=== PATIENT | male | born 1960 | race Caucasian/White ===

== ENCOUNTER 2020-02-05 14:13 | Observation (INO) ==
[2020-02-05] MEDS ORDERED: Naloxone 0.4 MG/ML INJ IVP PRN (18:18)
[2020-02-05] MEDS ORDERED: Ondansetron 4 MG/2 ML VIAL IVP PRN (18:18)
[2020-02-05] MEDS ORDERED: D5% in Water 1,000 ML IVC PRN (18:20)
[2020-02-05] MEDS ORDERED: Dextrose Gel 15 GM/37.5 ML TUBE PO PRN ×2 (18:20)
[2020-02-05] MEDS ORDERED: *HR* Dextrose 50 % in Water (Syg) 50 ML SYRINGE IVP PRN (18:20)
[2020-02-05] MEDS ORDERED: Acetaminophen 325 MG TABLET PO PRN (18:21)
[2020-02-05] MEDS ORDERED: *HR* OxyCODONE/APAP 5/325 TABLET PO PRN (18:21)
[2020-02-05] MEDS: levoFLOXacin 750 MG/150 ML 750 MG/150 ML BAG IVPB SCH (19:57)
[2020-02-05] MEDS: 0.9 % Sodium Chloride 1,000 ML IVC SCH (19:58)
[2020-02-05] MEDS: Insulin LISPRO 300 UNITS/3 ML VIAL SQ SCH (20:05)
[2020-02-05] MEDS: Topiramate 100 MG TABLET PO SCH (23:22)
[2020-02-06] MEDS: 0.9 % Sodium Chloride 1,000 ML IVC SCH (05:16)
[2020-02-06 07:41] LABS: Basophils % 0.4 %; Eosinophils # 0.2 K/mcL (0.0-0.6); Eosinophils % 1.9 %; Hematocrit 40.1 % (37.5-50.1); Immature Granulocytes % 0.4 % (0-4); Lymphocytes # 2.1 K/mcL (0.6-4.6); Lymphocytes % 23.5 %; Mean Corpuscular HGB Conc 32.4 g/dL (31.6-35.5); Mean Corpuscular Hemoglobin 29.6 pg (28.0-33.3); Mean Corpuscular Volume 91.3 fL (83.0-100.0); Mean Platelet Volume 9.6 fL (9.4-12.4); Monocytes # 1.1 K/mcL (0.0-1.3); Monocytes % 12.4 %; Neutrophils # 5.6 K/mcL (1.6-8.9); Platelet Count 198 K/mcL (140-400); Red Blood Count 4.39 M/mcL (4.19-5.50); Red Cell Distribution Width 14.6 % (11.5-14.5); Segmented Neutrophils % 61.4 %
[2020-02-06] MEDS: Loratadine 10 MG TABLET PO SCH (07:57)
[2020-02-06] MEDS: Topiramate 100 MG TABLET PO SCH ×2 (07:58→19:18)
[2020-02-06] MEDS: atenoloL 50 MG TABLET PO SCH (07:58)
[2020-02-06] MEDS: Insulin LISPRO 300 UNITS/3 ML VIAL SQ SCH ×3 (07:59→16:57)
[2020-02-06] MEDS: Fluticasone Propionate Nasal 50 MCG/SPRAY BOTTLE NS SCH (07:59)
[2020-02-06 08:03] LABS: BUN/Creatinine Ratio 13 (6-26); Blood Urea Nitrogen 14 mg/dL (6-20); Calcium 8.1 mg/dL (8.6-10.3); Carbon Dioxide 18 mEq/L (23-29); Chloride 110 mEq/L (98-107); Glucose 140 mg/dL (70-105); Osmolality,Calculated 281 (280-300); Phosphorous 3.2 mg/dL (2.7-4.5); Potassium 3.4 mEq/L (3.5-5.1); Sodium 134 mEq/L (136-145); eGFR For African Americans > 60 (> 60); eGFR For Non-African Americans > 60 (> 60)
[2020-02-06] MEDS ORDERED: *HR* Dextrose 50 % in Water (Syg) 50 ML SYRINGE IVP PRN (15:52)
[2020-02-06] MEDS ORDERED: Dextrose Gel 15 GM/37.5 ML TUBE PO PRN ×2 (15:52)
[2020-02-06] MEDS ORDERED: D5% in Water 1,000 ML IVC PRN (15:52)
[2020-02-06] MEDS: levoFLOXacin 750 MG/150 ML 750 MG/150 ML BAG IVPB SCH (17:06)
[2020-02-06] MEDS ORDERED: Insulin LISPRO 300 UNITS/3 ML VIAL SQ SCH (21:00)
[2020-02-07 02:38] LABS: Basophils % 0.4 %; Eosinophils # 0.3 K/mcL (0.0-0.6); Eosinophils % 3.3 %; Hematocrit 37.3 % (37.5-50.1); Hemoglobin 12.3 g/dL (12.9-16.9); Immature Granulocytes % 0.4 % (0-4); Lymphocytes # 2.3 K/mcL (0.6-4.6); Lymphocytes % 27.8 %; Mean Corpuscular Hemoglobin 30.6 pg (28.0-33.3); Mean Corpuscular Volume 92.8 fL (83.0-100.0); Mean Platelet Volume 9.8 fL (9.4-12.4); Monocytes # 0.9 K/mcL (0.0-1.3); Monocytes % 10.4 %; Neutrophils # 4.7 K/mcL (1.6-8.9); Platelet Count 176 K/mcL (140-400); Red Blood Count 4.02 M/mcL (4.19-5.50); Red Cell Distribution Width 14.6 % (11.5-14.5); Segmented Neutrophils % 57.7 %; White Blood Count 8.2 K/mcL (4.3-11.1)
[2020-02-07 02:55] LABS: BUN/Creatinine Ratio 14 (6-26); Blood Urea Nitrogen 16 mg/dL (6-20); Calcium 7.7 mg/dL (8.6-10.3); Carbon Dioxide 18 mEq/L (23-29); Chloride 108 mEq/L (98-107); Glucose 128 mg/dL (70-105); Magnesium 1.9 mg/dL (1.6-2.6); Osmolality,Calculated 277 (280-300); Potassium 3.4 mEq/L (3.5-5.1); Sodium 132 mEq/L (136-145); eGFR For African Americans > 60 (> 60); eGFR For Non-African Americans > 60 (> 60)
[2020-02-07] MEDS: Insulin LISPRO 300 UNITS/3 ML VIAL SQ SCH ×2 (07:36→12:41)
[2020-02-07] MEDS: Loratadine 10 MG TABLET PO SCH (08:19)
[2020-02-07] MEDS: atenoloL 50 MG TABLET PO SCH (08:19)
[2020-02-07] MEDS: Fluticasone Propionate Nasal 50 MCG/SPRAY BOTTLE NS SCH (08:19)
[2020-02-07] MEDS: Topiramate 100 MG TABLET PO SCH (08:19)
[2020-02-07 11:31] VITALS: BP 100/64
== END 2020-02-07 16:39 | disposition home or self-care (01) ==
LOC: 3BNU → EDSTATUS 17:46 → SUATTDRO 17:47
PROVIDERS: ADMIT Internal Medicine; ATTEND Family Medicine

== ENCOUNTER 2021-08-12 22:11 | Inpatient (IN) ==
[2021-08-12 22:49] LABS: Basophils % 0.2 %; Eosinophils % 0.2 %; Hematocrit 31.4 % (37.5-50.1); Hemoglobin 10.3 g/dL (12.9-16.9); Immature Granulocytes % 0.6 % (0-4); Lymphocytes # 0.7 K/mcL (0.6-4.6); Lymphocytes % 5.4 %; Mean Corpuscular HGB Conc 32.8 g/dL (31.6-35.5); Mean Corpuscular Hemoglobin 28.9 pg (28.0-33.3); Mean Corpuscular Volume 88.2 fL (83.0-100.0); Monocytes % 7.9 %; Neutrophils # 10.8 K/mcL (1.6-8.9); Platelet Count 158 K/mcL (140-400); Red Blood Count 3.56 M/mcL (4.19-5.50); Red Cell Distribution Width 16.1 % (11.5-14.5); Segmented Neutrophils % 85.7 %; White Blood Count 12.6 K/mcL (4.3-11.1)
[2021-08-12] MEDS: DilTIAZem 50 MG/50 ML IV.SOLN IVC SCH (22:54)
[2021-08-12] MEDS ORDERED: 0.9 % Sodium Chloride 500 ML IVC ONE (23:07)
[2021-08-12] MEDS ORDERED: *HR* Heparin 5,000 UNIT/ML VIAL IVP ONE (23:08)
[2021-08-12] MEDS ORDERED: Heparin 25,000UNIT/250ML 1/2NS 25,000 UNIT/250 ML IV.SOLN IVC SCH (23:15)
[2021-08-12 23:41] LABS: Hematocrit 36.7 % (37.5-50.1); Mean Corpuscular HGB Conc 33.2 g/dL (31.6-35.5); Mean Corpuscular Hemoglobin 28.9 pg (28.0-33.3); Mean Platelet Volume 9.8 fL (9.4-12.4); Platelet Count 180 K/mcL (140-400); Red Blood Count 4.22 M/mcL (4.19-5.50); White Blood Count 14.2 K/mcL (4.3-11.1)
[2021-08-12 23:43] LABS: Hemoglobin 12.2 g/dL (12.9-16.9)
[2021-08-12 23:51] LABS: Heparin anti-factor XA UFH < 0.04 IU/mL (0.30-0.70)
[2021-08-12 23:52] LABS: INR 1.3; Prothrombin Time 14.1 Seconds (9.4-12.1)
[2021-08-13 00:08] LABS: Blood Urea Nitrogen > 130 mg/dL (6-20); Calcium 7.3 mg/dL (8.6-10.3); Carbon Dioxide 9 mEq/L (23-29); Chloride 101 mEq/L (98-107); Glucose 163 mg/dL (70-105); Potassium 2.9 mEq/L (3.5-5.1); Sodium 127 mEq/L (136-145); Troponin I 0.31 ng/mL (< 0.04); eGFR For African Americans 13 (> 60); eGFR For Non-African Americans 10 (> 60)
[2021-08-13 01:03] LABS: Bacteria,Urine Many per hpf (None-Few); Bilirubin,Urine Negative (Negative); Blood,Urine Large (Negative); Clarity,Urine Ex.Turbid (Clear); Color,Urine Yellow (Yellow); Glucose,Urine (UA) Normal (Normal); Ketones,Urine Negative (Negative); Leukocyte Esterase,Urine Large (Negative); Mucus,Urine Few per lpf (None-Few); Nitrite,Urine Negative (Negative); PH,Urine 6.5 pH Units (5.0-8.0); Protein,Urine 100 mg/dL (Neg-Trace); RBC,Urine TNTC per hpf (0-3); Specific Gravity,Urine 1.012 (1.010-1.025); Squamous Epithelial Cell,Urine Few per hpf (None-Few); WBC,Urine TNTC per hpf (0-3)
[2021-08-13] MEDS ORDERED: 0.9 % Sodium Chloride 1,000 ML IVC ONE ×2 (01:52→03:36)
[2021-08-13] MEDS ORDERED: Ondansetron ODT 4 MG TAB.RAPDIS SL PRN (03:09)
[2021-08-13] MEDS ORDERED: Acetaminophen 325 MG TABLET PO PRN (03:09)
[2021-08-13] MEDS ORDERED: Naloxone 0.4 MG/ML INJ IVP PRN (03:09)
[2021-08-13] MEDS: DilTIAZem 50 MG/50 ML IV.SOLN IVC SCH ×2 (03:21→20:55)
[2021-08-13] MEDS ORDERED: Perflutren Lipid Microsphere 1.3 ML in 0.9 % Sodium Chloride 8.7 ML IVP PRN (03:32)
[2021-08-13] MEDS ORDERED: Dextrose Gel 15 GM/37.5 ML TUBE PO PRN ×2 (04:17)
[2021-08-13] MEDS ORDERED: *HR* Dextrose 50 % in Water (Syg) 50 ML SYRINGE IVP PRN (04:17)
[2021-08-13] MEDS ORDERED: D5% in Water 1,000 ML IVC PRN (04:17)
[2021-08-13] MEDS ORDERED: Vancomycin 1 EACH in 0.9 % Sodium Chloride 250 ML IVPB PRN (05:00)
[2021-08-13] MEDS ORDERED: Vancomycin 1,250 MG/262.5 ML IV.SOLN IVPB ONE (05:00)
[2021-08-13] MEDS ORDERED: Amiodarone Premix 150 MG/100 ML BAG IVPB ONE (05:12)
[2021-08-13] MEDS: Calcium Gluconate 1gm/50mL 1 GM/50 ML BAG IVPB SCH ×2 (05:20→05:49)
[2021-08-13] MEDS: Piperacillin/Tazobactam 3.375 GM in 0.9 % Sodium Chloride Mini Bag 100 ML IVPB SCH ×2 (05:25→19:40)
[2021-08-13] MEDS ORDERED: Amiodarone Premix 360 MG/200 ML BAG IVC ONE (05:30)
[2021-08-13 05:38] LABS: Sodium, Urine 47.4 mEq/L
[2021-08-13] MEDS: Insulin LISPRO 300 UNITS/3 ML VIAL SUBQ SCH ×3 (06:04→19:11)
[2021-08-13] MEDS ORDERED: 0.9 % Sodium Chloride 1,000 ML IVC SCH (06:45)
[2021-08-13 06:56] LABS: INR 1.2; Prothrombin Time 13.5 Seconds (9.4-12.1)
[2021-08-13 06:59] LABS: Activated Partial Thrombo Time 43.1 Seconds (26.0-36.0)
[2021-08-13 07:19] LABS: Albumin 2.6 g/dL (3.5-5.7); Albumin/Globulin Ratio 0.6 (1.1-2.2); Bilirubin,Total 0.4 mg/dL (0.3-1.0); Calcium 7.6 mg/dL (8.6-10.3); Chol/HDL Ratio 13.7 (0-4.9); Globulin 4.3 g/dL (2.4-3.5); Total Protein 6.9 g/dL (6.4-8.9)
[2021-08-13 07:32] LABS: Thyroid Stimulating Hormone 3.977 mcIU/mL (0.340-5.600)
[2021-08-13 07:51] LABS: ABG Base Excess -14 mEq/L (-2 to 3); ABG HCO3 9 mEq/L (21-27); ABG Oxygen Saturation 98 % (95-98); ABG PCO2 14 mmHg (35-45); ABG PH 7.38 pH Units (7.32-7.45); ABG PO2 103 mmHg (85-104); ABG TCO2 9 mEq/L (20-26)
[2021-08-13 08:08] LABS: Basophils % 0.2 %; Eosinophils # 0.1 K/mcL (0.0-0.6); Eosinophils % 0.3 %; Hematocrit 35.5 % (37.5-50.1); Hemoglobin 11.6 g/dL (12.9-16.9); Immature Granulocytes % 0.8 % (0-4); Lymphocytes # 0.6 K/mcL (0.6-4.6); Lymphocytes % 3.7 %; Mean Corpuscular HGB Conc 32.7 g/dL (31.6-35.5); Mean Corpuscular Hemoglobin 28.9 pg (28.0-33.3); Mean Corpuscular Volume 88.5 fL (83.0-100.0); Mean Platelet Volume 9.7 fL (9.4-12.4); Monocytes % 6.5 %; Neutrophils # 14.1 K/mcL (1.6-8.9); Platelet Count 195 K/mcL (140-400); Red Blood Count 4.01 M/mcL (4.19-5.50); Red Cell Distribution Width 16.2 % (11.5-14.5); Segmented Neutrophils % 88.5 %
[2021-08-13] MEDS ORDERED: Sodium Bicarbonate 150 MEQ in D5% in Water 1,000 ML IVC SCH (08:30)
[2021-08-13] MEDS ORDERED: Ringers Solution, Lactated 1,000 ML IVC SCH (08:30)
[2021-08-13 09:03] LABS: Albumin 2.5 g/dL (3.5-5.7); Albumin/Globulin Ratio 0.6 (1.1-2.2); Bilirubin,Direct 0.1 mg/dL (0.0-0.2); Bilirubin,Indirect 0.3 mg/dL (0.0-1.0); Bilirubin,Total 0.4 mg/dL (0.3-1.0); Calcium 7.5 mg/dL (8.6-10.3); Globulin 4.2 g/dL (2.4-3.5); Total Protein 6.7 g/dL (6.4-8.9)
[2021-08-13 09:14] LABS: Estimated Average Glucose 137 mg/dl; Hemoglobin A1C 6.4 %
[2021-08-13] MEDS: Amiodarone Premix 360 MG/200 ML BAG IVC SCH ×2 (11:32→22:35)
[2021-08-13] MEDS: *HR* Heparin 5,000 UNIT/ML VIAL IVP PRN (13:32)
[2021-08-13] MEDS: Sodium Bicarbonate 150 MEQ in D5% in Water 1,000 ML IVC SCH (19:38)
[2021-08-13] MEDS: Heparin 25,000 UNIT/250 ML 25,000 UNIT/250 ML IV.SOLN IVC SCH (20:00)
[2021-08-13] MEDS ORDERED: *HR* Amiodarone 200 MG TABLET PO ONE (20:30)
[2021-08-13] MEDS ORDERED: Topiramate 100 MG TABLET PO SCH (21:30)
[2021-08-13] MEDS: Topiramate 25 MG TABLET PO SCH (21:42)
[2021-08-13 21:53] LABS: Calcium 7.4 mg/dL (8.6-10.3); Magnesium 2.2 mg/dL (1.6-2.6); Potassium 2.8 mEq/L (3.5-5.1)
[2021-08-14] MEDS: Amiodarone Premix 360 MG/200 ML BAG IVC SCH ×3 (03:58→20:05)
[2021-08-14] MEDS: Sodium Bicarbonate 150 MEQ in D5% in Water 1,000 ML IVC SCH ×5 (04:00→20:04)
[2021-08-14] MEDS: DilTIAZem 50 MG/50 ML IV.SOLN IVC SCH (04:01)
[2021-08-14 04:41] LABS: Calcium 6.9 mg/dL (8.6-10.3); Potassium 3.3 mEq/L (3.5-5.1)
[2021-08-14] MEDS: Piperacillin/Tazobactam 3.375 GM in 0.9 % Sodium Chloride Mini Bag 100 ML IVPB SCH ×2 (05:23→17:27)
[2021-08-14] MEDS: Insulin LISPRO 300 UNITS/3 ML VIAL SUBQ SCH ×4 (05:23→17:35)
[2021-08-14 05:57] LABS: Hemoglobin 10.1 g/dL (12.9-16.9); Mean Corpuscular HGB Conc 34.8 g/dL (31.6-35.5); Mean Corpuscular Volume 83.3 fL (83.0-100.0); Mean Platelet Volume 9.7 fL (9.4-12.4); Platelet Count 230 K/mcL (140-400); Red Blood Count 3.48 M/mcL (4.19-5.50); White Blood Count 12.6 K/mcL (4.3-11.1)
[2021-08-14] MEDS ORDERED: Vancomycin 1,250 MG/262.5 ML IV.SOLN IVPB ONE (06:00)
[2021-08-14] MEDS: *HR* Heparin 5,000 UNIT/ML VIAL IVP PRN ×2 (07:03→17:30)
[2021-08-14 07:21] LABS: Adenovirus F 40/41 PCR Not detected (Not detect); Astrovirus PCR Not detected (Not detect); C.difficile Toxin A/B Gene PCR Not detected (Not detect); Campylobacter by PCR Not detected (Not detect); Cryptosporidium by PCR Not detected (Not detect); Cyclospora cayetanensis PCR Not detected (Not detect); E. coli O157 by PCR Not detected (Not detect); Entamoeba histolytica PCR Not detected (Not detect); Enteroaggregative E.coli(EAEC) Not detected (Not detect); Enteropathogenic E.coli(EPEC) Not detected (Not detect); Enterotoxigenic E.coli (ETEC) Not detected (Not detect); Giardia lamblia PCR Not detected (Not detect); Norovirus GI/GII PCR Not detected (Not detect); Plesiomonas shigelloides PCR Not detected (Not detect); Rotavirus A PCR Not detected (Not detect); Salmonella PCR Not detected (Not detect); Sapovirus PCR Not detected (Not detect); Shig/EnteroinvasiveE coli EIEC Not detected (Not detect); Shigalike tox-prod E coli STEC Not detected (Not detect); Vibrio PCR Not detected (Not detect); Vibrio cholerae PCR Not detected (Not detect); Yersinia enterocolitica PCR Not detected (Not detect)
[2021-08-14] MEDS: Topiramate 25 MG TABLET PO SCH ×2 (08:13→20:32)
[2021-08-14] MEDS: Aspirin Enteric Coated 81 MG Tablet PO SCH (12:16)
[2021-08-14] MEDS: Heparin 25,000 UNIT/250 ML 25,000 UNIT/250 ML IV.SOLN IVC SCH (17:29)
[2021-08-15 00:57] LABS: Hematocrit 28.2 % (37.5-50.1); Hemoglobin 9.6 g/dL (12.9-16.9); Mean Corpuscular Hemoglobin 28.4 pg (28.0-33.3); Mean Corpuscular Volume 83.4 fL (83.0-100.0); Mean Platelet Volume 9.8 fL (9.4-12.4); Platelet Count 258 K/mcL (140-400); Red Blood Count 3.38 M/mcL (4.19-5.50); White Blood Count 12.3 K/mcL (4.3-11.1)
[2021-08-15 00:58] LABS: Calcium 6.7 mg/dL (8.6-10.3)
[2021-08-15] MEDS: Insulin LISPRO 300 UNITS/3 ML VIAL SUBQ SCH ×4 (01:08→16:46)
[2021-08-15] MEDS: Sodium Bicarbonate 150 MEQ in D5% in Water 1,000 ML IVC SCH (05:12)
[2021-08-15] MEDS: Amiodarone Premix 360 MG/200 ML BAG IVC SCH ×2 (05:14→16:38)
[2021-08-15] MEDS: Piperacillin/Tazobactam 3.375 GM in 0.9 % Sodium Chloride Mini Bag 100 ML IVPB SCH ×2 (05:16→16:44)
[2021-08-15 08:22] LABS: Magnesium 1.7 mg/dL (1.6-2.6); Phosphorous 2.1 mg/dL (2.7-4.5)
[2021-08-15] MEDS: Aspirin Enteric Coated 81 MG Tablet PO SCH (08:41)
[2021-08-15] MEDS: Topiramate 25 MG TABLET PO SCH ×2 (08:42→20:37)
[2021-08-15] MEDS: Heparin 25,000 UNIT/250 ML 25,000 UNIT/250 ML IV.SOLN IVC SCH (09:21)
[2021-08-15] MEDS: *HR* Heparin 5,000 UNIT/ML VIAL IVP PRN ×2 (09:22→22:51)
[2021-08-15] MEDS: Ringers Solution, Lactated 1,000 ML IVC SCH (09:32)
[2021-08-15 13:17] LABS: Calcium 6.8 mg/dL (8.6-10.3); Potassium 3.2 mEq/L (3.5-5.1)
[2021-08-15] MEDS ORDERED: 0.9 % Sodium Chloride 500 ML ONE (14:02)
[2021-08-15] MEDS ORDERED: *HR* Midazolam HCl 2 MG/2 ML VIAL IVP ONE (14:12)
[2021-08-15] MEDS ORDERED: *HR* FentaNYL (PF) 100 MCG/2 ML VIAL ONE (14:12)
[2021-08-15] MEDS ORDERED: *HR* FentaNYL (PF) 100 MCG/2 ML VIAL IVP ONE (14:12)
[2021-08-15] MEDS ORDERED: *HR* Midazolam HCl 2 MG/2 ML VIAL ONE (14:12)
[2021-08-15] MEDS ORDERED: Isovue-300 50ML VIAL IVP ONE (14:39)
[2021-08-15] MEDS: Fluticasone Propionate Nasal 50 MCG/SPRAY BOTTLE NS SCH (20:38)
[2021-08-16] MEDS: Ringers Solution, Lactated 1,000 ML IVC SCH (00:35)
[2021-08-16] MEDS: Insulin LISPRO 300 UNITS/3 ML VIAL SUBQ SCH ×4 (00:43→17:02)
[2021-08-16] MEDS: Heparin 25,000 UNIT/250 ML 25,000 UNIT/250 ML IV.SOLN IVC SCH ×2 (03:38→14:49)
[2021-08-16] MEDS: Amiodarone Premix 360 MG/200 ML BAG IVC SCH ×2 (05:37→17:37)
[2021-08-16] MEDS: Piperacillin/Tazobactam 3.375 GM in 0.9 % Sodium Chloride Mini Bag 100 ML IVPB SCH ×3 (05:39→21:09)
[2021-08-16 08:31] LABS: Hematocrit 27.8 % (37.5-50.1); Hemoglobin 9.6 g/dL (12.9-16.9); Mean Corpuscular HGB Conc 34.5 g/dL (31.6-35.5); Mean Corpuscular Hemoglobin 29.4 pg (28.0-33.3); Mean Corpuscular Volume 85.3 fL (83.0-100.0); Mean Platelet Volume 9.6 fL (9.4-12.4); Platelet Count 282 K/mcL (140-400); Red Blood Count 3.26 M/mcL (4.19-5.50); Red Cell Distribution Width 16.4 % (11.5-14.5)
[2021-08-16] MEDS: Aspirin Enteric Coated 81 MG Tablet PO SCH (08:31)
[2021-08-16] MEDS: Topiramate 25 MG TABLET PO SCH ×2 (08:31→21:08)
[2021-08-16 08:47] LABS: Phosphorous 2.4 mg/dL (2.7-4.5); Potassium 3.1 mEq/L (3.5-5.1)
[2021-08-16] MEDS: Potassium Chloride Elixir 20 MEQ/15 ML UDC PO SCH (11:08)
[2021-08-16] MEDS ORDERED: *HR* Digoxin 0.5 MG/2 ML AMPUL IVP ONE ×2 (12:37→13:20)
[2021-08-16] MEDS ORDERED: *HR* Metoprolol 5 MG/5 ML VIAL IVP ONE ×2 (13:35→13:42)
[2021-08-16] MEDS: Fluticasone Propionate Nasal 50 MCG/SPRAY BOTTLE NS SCH (16:57)
[2021-08-16 18:32] LABS: Heparin anti-factor XA UFH 0.37 IU/mL (0.30-0.70)
[2021-08-16 18:35] LABS: Activated Partial Thrombo Time 61.1 Seconds (26.0-36.0)
[2021-08-16] MEDS ORDERED: *HR* Digoxin 0.5 MG/2 ML AMPUL IVP SCH ×2 (19:00)
[2021-08-16] MEDS ORDERED: Metoprolol XL (24 HR) Succ 25 MG TAB.ER.24H PO SCH (21:00)
[2021-08-17] MEDS: Heparin 25,000 UNIT/250 ML 25,000 UNIT/250 ML IV.SOLN IVC SCH ×3 (02:45→23:56)
[2021-08-17 05:47] LABS: Basophils % 0.3 %; Eosinophils # 0.1 K/mcL (0.0-0.6); Eosinophils % 1.4 %; Hematocrit 29.8 % (37.5-50.1); Hemoglobin 9.7 g/dL (12.9-16.9); Immature Granulocytes % 0.6 % (0-4); Lymphocytes # 1.2 K/mcL (0.6-4.6); Lymphocytes % 12.5 %; Mean Corpuscular HGB Conc 32.6 g/dL (31.6-35.5); Mean Corpuscular Hemoglobin 28.4 pg (28.0-33.3); Mean Corpuscular Volume 87.1 fL (83.0-100.0); Mean Platelet Volume 9.3 fL (9.4-12.4); Monocytes # 0.8 K/mcL (0.0-1.3); Monocytes % 8.4 %; Neutrophils # 7.2 K/mcL (1.6-8.9); Platelet Count 266 K/mcL (140-400); Red Blood Count 3.42 M/mcL (4.19-5.50); Red Cell Distribution Width 17.1 % (11.5-14.5); Segmented Neutrophils % 76.8 %; White Blood Count 9.4 K/mcL (4.3-11.1)
[2021-08-17 05:48] LABS: Heparin anti-factor XA UFH 0.27 IU/mL (0.30-0.70)
[2021-08-17 05:50] LABS: Activated Partial Thrombo Time 51.9 Seconds (26.0-36.0)
[2021-08-17 05:56] LABS: Calcium 7.3 mg/dL (8.6-10.3); Potassium 3.6 mEq/L (3.5-5.1)
[2021-08-17] MEDS: Piperacillin/Tazobactam 3.375 GM in 0.9 % Sodium Chloride Mini Bag 100 ML IVPB SCH ×3 (06:59→22:07)
[2021-08-17] MEDS: Insulin LISPRO 300 UNITS/3 ML VIAL SUBQ SCH ×5 (07:28→20:34)
[2021-08-17] MEDS: *HR* Heparin 5,000 UNIT/ML VIAL IVP PRN (08:26)
[2021-08-17] MEDS: Aspirin Enteric Coated 81 MG Tablet PO SCH (09:14)
[2021-08-17] MEDS: Topiramate 25 MG TABLET PO SCH ×2 (09:14→20:33)
[2021-08-17] MEDS: Potassium Chloride Elixir 20 MEQ/15 ML UDC PO SCH (09:14)
[2021-08-17] MEDS ORDERED: 0.9 % Sodium Chloride 500 ML IVC ONE (11:20)
[2021-08-17] MEDS ORDERED: Lidocaine Viscous Oral Soln 15 ML SOLUTION MM PRN (11:20)
[2021-08-17] MEDS: *HR* FentaNYL (PF) 100 MCG/2 ML VIAL IVP PRN ×4 (11:50→12:05)
[2021-08-17] MEDS: *HR* Midazolam HCl 5 MG/5 ML VIAL IVP PRN ×4 (11:50→12:05)
[2021-08-17] MEDS: Amiodarone Premix 360 MG/200 ML BAG IVC SCH (16:24)
[2021-08-17] MEDS: Fluticasone Propionate Nasal 50 MCG/SPRAY BOTTLE NS SCH (18:22)
[2021-08-17] MEDS: Bismuth Subsalicylate 120 ML ORAL SUSPENSION PO PRN (18:54)
[2021-08-18 01:17] LABS: Basophils % 0.3 %; Eosinophils # 0.2 K/mcL (0.0-0.6); Eosinophils % 1.8 %; Hematocrit 30.4 % (37.5-50.1); Hemoglobin 9.7 g/dL (12.9-16.9); Immature Granulocytes % 0.7 % (0-4); Lymphocytes # 1.1 K/mcL (0.6-4.6); Lymphocytes % 11.9 %; Mean Corpuscular HGB Conc 31.9 g/dL (31.6-35.5); Mean Corpuscular Hemoglobin 28.4 pg (28.0-33.3); Mean Corpuscular Volume 89.1 fL (83.0-100.0); Mean Platelet Volume 8.8 fL (9.4-12.4); Monocytes # 0.9 K/mcL (0.0-1.3); Monocytes % 10.4 %; Neutrophils # 6.8 K/mcL (1.6-8.9); Platelet Count 251 K/mcL (140-400); Red Blood Count 3.41 M/mcL (4.19-5.50); Segmented Neutrophils % 74.9 %; White Blood Count 9.1 K/mcL (4.3-11.1)
[2021-08-18 01:51] LABS: Calcium 7.4 mg/dL (8.6-10.3); Potassium 3.9 mEq/L (3.5-5.1)
[2021-08-18] MEDS: *HR* Heparin 5,000 UNIT/ML VIAL IVP PRN (02:07)
[2021-08-18] MEDS: Amiodarone Premix 360 MG/200 ML BAG IVC SCH (04:54)
[2021-08-18] MEDS: Piperacillin/Tazobactam 3.375 GM in 0.9 % Sodium Chloride Mini Bag 100 ML IVPB SCH ×2 (06:41→14:05)
[2021-08-18] MEDS: Insulin LISPRO 300 UNITS/3 ML VIAL SUBQ SCH ×4 (07:57→20:09)
[2021-08-18] MEDS ORDERED: *HR* Amiodarone 200 MG TABLET PO SCH (09:00)
[2021-08-18] MEDS: Topiramate 25 MG TABLET PO SCH ×2 (09:20→20:11)
[2021-08-18] MEDS: Potassium Chloride Elixir 20 MEQ/15 ML UDC PO SCH (09:20)
[2021-08-18] MEDS: Heparin 25,000 UNIT/250 ML 25,000 UNIT/250 ML IV.SOLN IVC SCH (09:21)
[2021-08-18] MEDS: Apixaban 5 MG TABLET PO SCH ×2 (11:20→20:11)
[2021-08-18] MEDS: Bismuth Subsalicylate 120 ML ORAL SUSPENSION PO PRN ×2 (14:04→20:12)
[2021-08-18] MEDS: Fluticasone Propionate Nasal 50 MCG/SPRAY BOTTLE NS SCH (17:53)
[2021-08-19 06:34] LABS: Basophils % 0.3 %; Eosinophils # 0.2 K/mcL (0.0-0.6); Eosinophils % 1.9 %; Hematocrit 28.1 % (37.5-50.1); Hemoglobin 9.2 g/dL (12.9-16.9); Immature Granulocytes % 0.6 % (0-4); Lymphocytes # 1.2 K/mcL (0.6-4.6); Lymphocytes % 12.9 %; Mean Corpuscular HGB Conc 32.7 g/dL (31.6-35.5); Mean Corpuscular Hemoglobin 29.5 pg (28.0-33.3); Mean Corpuscular Volume 90.1 fL (83.0-100.0); Mean Platelet Volume 9.6 fL (9.4-12.4); Monocytes % 10.6 %; Neutrophils # 6.7 K/mcL (1.6-8.9); Platelet Count 287 K/mcL (140-400); Red Blood Count 3.12 M/mcL (4.19-5.50); Red Cell Distribution Width 16.5 % (11.5-14.5); Segmented Neutrophils % 73.7 %
[2021-08-19 07:00] LABS: Calcium 7.7 mg/dL (8.6-10.3)
[2021-08-19] MEDS: Insulin LISPRO 300 UNITS/3 ML VIAL SUBQ SCH ×4 (07:25→21:31)
[2021-08-19] MEDS: Topiramate 25 MG TABLET PO SCH ×2 (07:26→22:24)
[2021-08-19] MEDS: Apixaban 5 MG TABLET PO SCH ×2 (07:27→22:24)
[2021-08-19] MEDS: Potassium Chloride Elixir 20 MEQ/15 ML UDC PO SCH (07:28)
[2021-08-19] MEDS: Aspirin Enteric Coated 81 MG Tablet PO SCH (07:35)
[2021-08-19] MEDS: Ertapenem 1,000 MG in 0.9 % Sodium Chloride Mini Bag 100 ML IVPB SCH (13:08)
[2021-08-19] MEDS: Fluticasone Propionate Nasal 50 MCG/SPRAY BOTTLE NS SCH (16:55)
[2021-08-20] MEDS: Bismuth Subsalicylate 120 ML ORAL SUSPENSION PO PRN (00:28)
[2021-08-20 06:53] LABS: Hematocrit 29.1 % (37.5-50.1); Hemoglobin 9.2 g/dL (12.9-16.9); Mean Corpuscular HGB Conc 31.6 g/dL (31.6-35.5); Mean Corpuscular Hemoglobin 28.3 pg (28.0-33.3); Mean Corpuscular Volume 89.5 fL (83.0-100.0); Mean Platelet Volume 9.4 fL (9.4-12.4); Platelet Count 252 K/mcL (140-400); Red Blood Count 3.25 M/mcL (4.19-5.50); Red Cell Distribution Width 16.3 % (11.5-14.5); White Blood Count 9.4 K/mcL (4.3-11.1)
[2021-08-20 07:01] LABS: Magnesium 1.6 mg/dL (1.6-2.6); Potassium 4.5 mEq/L (3.5-5.1)
[2021-08-20] MEDS: Ertapenem 1,000 MG in 0.9 % Sodium Chloride Mini Bag 100 ML IVPB SCH (08:13)
[2021-08-20] MEDS: Potassium Chloride Elixir 20 MEQ/15 ML UDC PO SCH (08:14)
[2021-08-20] MEDS: Aspirin Enteric Coated 81 MG Tablet PO SCH (08:14)
[2021-08-20] MEDS: Apixaban 5 MG TABLET PO SCH ×2 (08:14→20:32)
[2021-08-20] MEDS: Topiramate 25 MG TABLET PO SCH ×2 (08:14→20:32)
[2021-08-20] MEDS: Insulin LISPRO 300 UNITS/3 ML VIAL SUBQ SCH ×4 (08:14→20:32)
[2021-08-20] MEDS ORDERED: Magnesium Sulfate 1 GM/102 ML PIGGYBACK IVPB ONE (13:48)
[2021-08-20] MEDS: Fluticasone Propionate Nasal 50 MCG/SPRAY BOTTLE NS SCH (16:39)
[2021-08-21 06:20] LABS: Hematocrit 27.5 % (37.5-50.1); Hemoglobin 9.1 g/dL (12.9-16.9); Mean Corpuscular HGB Conc 33.1 g/dL (31.6-35.5); Mean Corpuscular Hemoglobin 29.3 pg (28.0-33.3); Mean Corpuscular Volume 88.4 fL (83.0-100.0); Mean Platelet Volume 9.3 fL (9.4-12.4); Platelet Count 256 K/mcL (140-400); Red Blood Count 3.11 M/mcL (4.19-5.50); Red Cell Distribution Width 15.9 % (11.5-14.5); White Blood Count 7.9 K/mcL (4.3-11.1)
[2021-08-21 06:52] LABS: Calcium 7.8 mg/dL (8.6-10.3); Magnesium 1.9 mg/dL (1.6-2.6); Potassium 4.1 mEq/L (3.5-5.1)
[2021-08-21] MEDS: Insulin LISPRO 300 UNITS/3 ML VIAL SUBQ SCH ×4 (08:10→20:29)
[2021-08-21] MEDS: Aspirin Enteric Coated 81 MG Tablet PO SCH (09:20)
[2021-08-21] MEDS: Topiramate 25 MG TABLET PO SCH ×2 (09:20→20:32)
[2021-08-21] MEDS: Potassium Chloride Elixir 20 MEQ/15 ML UDC PO SCH (09:21)
[2021-08-21] MEDS: Apixaban 5 MG TABLET PO SCH ×2 (09:21→20:33)
[2021-08-21] MEDS: Ertapenem 1,000 MG in 0.9 % Sodium Chloride Mini Bag 100 ML IVPB SCH (09:22)
[2021-08-21] MEDS: Fluticasone Propionate Nasal 50 MCG/SPRAY BOTTLE NS SCH (17:26)
[2021-08-22 03:34] LABS: Hematocrit 29.2 % (37.5-50.1); Hemoglobin 9.5 g/dL (12.9-16.9); Mean Corpuscular HGB Conc 32.5 g/dL (31.6-35.5); Mean Corpuscular Hemoglobin 29.3 pg (28.0-33.3); Mean Corpuscular Volume 90.1 fL (83.0-100.0); Mean Platelet Volume 9.1 fL (9.4-12.4); Platelet Count 286 K/mcL (140-400); Red Blood Count 3.24 M/mcL (4.19-5.50); White Blood Count 7.6 K/mcL (4.3-11.1)
[2021-08-22 03:54] LABS: Calcium 7.8 mg/dL (8.6-10.3); Potassium 4.8 mEq/L (3.5-5.1)
[2021-08-22] MEDS: Insulin LISPRO 300 UNITS/3 ML VIAL SUBQ SCH ×4 (07:27→20:56)
[2021-08-22] MEDS: Potassium Chloride Elixir 20 MEQ/15 ML UDC PO SCH (08:58)
[2021-08-22] MEDS: Topiramate 25 MG TABLET PO SCH ×2 (08:59→20:44)
[2021-08-22] MEDS: Apixaban 5 MG TABLET PO SCH ×2 (08:59→20:45)
[2021-08-22] MEDS: Aspirin Enteric Coated 81 MG Tablet PO SCH (08:59)
[2021-08-22] MEDS: Ertapenem 1,000 MG in 0.9 % Sodium Chloride Mini Bag 100 ML IVPB SCH (08:59)
[2021-08-22] MEDS: Lactobacillus 1 EACH CAP.SPRINK PO SCH (20:44)
[2021-08-22] MEDS: Fluticasone Propionate Nasal 50 MCG/SPRAY BOTTLE NS SCH (20:47)
[2021-08-23 04:53] LABS: Hematocrit 29.1 % (37.5-50.1); Hemoglobin 9.3 g/dL (12.9-16.9); Mean Corpuscular Hemoglobin 28.5 pg (28.0-33.3); Mean Corpuscular Volume 89.3 fL (83.0-100.0); Mean Platelet Volume 9.1 fL (9.4-12.4); Platelet Count 263 K/mcL (140-400); Red Blood Count 3.26 M/mcL (4.19-5.50); Red Cell Distribution Width 15.9 % (11.5-14.5); White Blood Count 7.4 K/mcL (4.3-11.1)
[2021-08-23 05:53] LABS: Calcium 8.1 mg/dL (8.6-10.3); Potassium 4.5 mEq/L (3.5-5.1)
[2021-08-23] MEDS: Insulin LISPRO 300 UNITS/3 ML VIAL SUBQ SCH ×5 (08:22→20:50)
[2021-08-23] MEDS: Lactobacillus 1 EACH CAP.SPRINK PO SCH ×2 (09:04→20:54)
[2021-08-23] MEDS: Topiramate 25 MG TABLET PO SCH ×2 (09:04→20:55)
[2021-08-23] MEDS: Aspirin Enteric Coated 81 MG Tablet PO SCH (09:04)
[2021-08-23] MEDS: Apixaban 5 MG TABLET PO SCH ×2 (09:05→20:54)
[2021-08-23] MEDS: Fluticasone Propionate Nasal 50 MCG/SPRAY BOTTLE NS SCH ×2 (20:58→21:08)
[2021-08-24 04:54] LABS: Calcium 8.2 mg/dL (8.6-10.3)
[2021-08-24 05:02] LABS: Hematocrit 28.7 % (37.5-50.1); Hemoglobin 9.4 g/dL (12.9-16.9); Mean Corpuscular HGB Conc 32.8 g/dL (31.6-35.5); Mean Corpuscular Hemoglobin 29.2 pg (28.0-33.3); Mean Corpuscular Volume 89.1 fL (83.0-100.0); Platelet Count 297 K/mcL (140-400); Red Blood Count 3.22 M/mcL (4.19-5.50); Red Cell Distribution Width 15.6 % (11.5-14.5); White Blood Count 7.1 K/mcL (4.3-11.1)
[2021-08-24] MEDS: Insulin LISPRO 300 UNITS/3 ML VIAL SUBQ SCH ×4 (08:59→20:29)
[2021-08-24] MEDS: Apixaban 5 MG TABLET PO SCH ×2 (09:30→20:31)
[2021-08-24] MEDS: Topiramate 25 MG TABLET PO SCH ×2 (09:30→20:31)
[2021-08-24] MEDS: Aspirin Enteric Coated 81 MG Tablet PO SCH (09:30)
[2021-08-24] MEDS: Lactobacillus 1 EACH CAP.SPRINK PO SCH ×2 (09:30→20:31)
[2021-08-24] MEDS: Fluticasone Propionate Nasal 50 MCG/SPRAY BOTTLE NS SCH (17:33)
[2021-08-25 04:55] LABS: Hematocrit 28.8 % (37.5-50.1); Hemoglobin 9.2 g/dL (12.9-16.9); Mean Corpuscular HGB Conc 31.9 g/dL (31.6-35.5); Mean Corpuscular Hemoglobin 28.5 pg (28.0-33.3); Mean Corpuscular Volume 89.2 fL (83.0-100.0); Mean Platelet Volume 8.9 fL (9.4-12.4); Platelet Count 290 K/mcL (140-400); Red Blood Count 3.23 M/mcL (4.19-5.50); Red Cell Distribution Width 15.2 % (11.5-14.5); White Blood Count 6.8 K/mcL (4.3-11.1)
[2021-08-25 05:15] LABS: Calcium 7.7 mg/dL (8.6-10.3); Potassium 3.6 mEq/L (3.5-5.1)
[2021-08-25] MEDS: Insulin LISPRO 300 UNITS/3 ML VIAL SUBQ SCH ×2 (08:44→12:28)
[2021-08-25] MEDS ORDERED: Ertapenem 1,000 MG in 0.9 % Sodium Chloride Mini Bag 100 ML IVPB SCH (09:00)
[2021-08-25] MEDS: Aspirin Enteric Coated 81 MG Tablet PO SCH (09:06)
[2021-08-25] MEDS: Apixaban 5 MG TABLET PO SCH (09:06)
[2021-08-25] MEDS: Lactobacillus 1 EACH CAP.SPRINK PO SCH (09:06)
[2021-08-25] MEDS: Topiramate 25 MG TABLET PO SCH (09:06)
[2021-08-25 11:23] VITALS: O2SAT 96
[2021-08-25 14:07] LABS: Influenza A PCR Negative (Negative); Influenza B PCR Negative (Negative); Resp. Syncytial Virus PCR Negative (Negative)
[2021-08-25 14:22] LABS: SARS-CoV-2 by PCR (In House) Negative (Negative)
[2021-08-25 15:34] VITALS: BP 106/62; PULSE 57; TEMP 97.8
== END 2021-08-25 17:27 | DRG 720 ==
LOC: 2NENU 22:11 → EMEROOARM 22:11 → SUATTDRO 08-13 02:32 → 2NNU 08-13 03:58 → SUATTDRO 08-13 13:45 → 3ANU 08-19 18:29
PROVIDERS: ADMIT Internal Medicine; ATTEND Internal Medicine

== ENCOUNTER 2021-09-18 14:56 | Inpatient (IN) ==
[2021-09-18 18:44] LABS: Basophils # 0.1 K/mcL (0.0-0.2); Basophils % 0.7 %; Eosinophils # 0.4 K/mcL (0.0-0.6); Hematocrit 32.2 % (37.5-50.1); Hemoglobin 10.4 g/dL (12.9-16.9); Immature Granulocytes % 0.3 % (0-4); Lymphocytes # 2.3 K/mcL (0.6-4.6); Lymphocytes % 26.2 %; Mean Corpuscular HGB Conc 32.3 g/dL (31.6-35.5); Mean Corpuscular Hemoglobin 29.3 pg (28.0-33.3); Mean Corpuscular Volume 90.7 fL (83.0-100.0); Mean Platelet Volume 8.8 fL (9.4-12.4); Monocytes # 0.8 K/mcL (0.0-1.3); Monocytes % 8.8 %; Neutrophils # 5.2 K/mcL (1.6-8.9); Platelet Count 299 K/mcL (140-400); Red Blood Count 3.55 M/mcL (4.19-5.50); Red Cell Distribution Width 15.6 % (11.5-14.5); White Blood Count 8.7 K/mcL (4.3-11.1)
[2021-09-18] MEDS ORDERED: Piperacillin/Tazobactam 3.375 GM in 0.9 % Sodium Chloride Mini Bag 100 ML IVPB ONE (18:46)
[2021-09-18 18:47] LABS: Bacteria,Urine Moderate per hpf (None-Few); Bilirubin,Urine Negative (Negative); Blood,Urine Moderate (Negative); Clarity,Urine Turbid (Clear); Color,Urine Yellow (Yellow); Glucose,Urine (UA) Normal (Normal); Ketones,Urine Negative (Negative); Leukocyte Esterase,Urine Large (Negative); Mucus,Urine Few per lpf (None-Few); Nitrite,Urine Negative (Negative); Protein,Urine 100 mg/dL (Neg-Trace); RBC,Urine 50-100 per hpf (0-3); Specific Gravity,Urine 1.019 (1.010-1.025); Urobilinogen,Urine Normal (Normal); WBC,Urine TNTC per hpf (0-3)
[2021-09-18 18:57] LABS: Calcium 8.5 mg/dL (8.6-10.3); Potassium 3.4 mEq/L (3.5-5.1)
[2021-09-18] MEDS ORDERED: Vancomycin 1,250 MG/262.5 ML IV.SOLN IVPB ONE (19:00)
[2021-09-18] MEDS ORDERED: Acetaminophen 325 MG TABLET PO PRN (20:07)
[2021-09-18] MEDS ORDERED: Ondansetron 4 MG/2 ML VIAL IVP PRN (20:07)
[2021-09-18] MEDS ORDERED: Naloxone 0.4 MG/ML INJ IVP PRN (20:07)
[2021-09-18] MEDS ORDERED: Ipratropium/Albuterol Neb 3 ML IH PRN (20:09)
[2021-09-18] MEDS: 0.9 % Sodium Chloride 1,000 ML IVC SCH (22:50)
[2021-09-18 23:31] LABS: Calcium 8.4 mg/dL (8.6-10.3); Potassium 3.4 mEq/L (3.5-5.1)
[2021-09-19] MEDS ORDERED: Piperacillin/Tazobactam 3.375 GM in 0.9 % Sodium Chloride Mini Bag 100 ML IVPB SCH
[2021-09-19] MEDS ORDERED: Bismuth Subsalicylate 262 MG TABLET PO PRN (00:58)
[2021-09-19 01:50] LABS: Basophils # 0.1 K/mcL (0.0-0.2); Basophils % 0.9 %; Eosinophils # 0.4 K/mcL (0.0-0.6); Eosinophils % 5.5 %; Hematocrit 29.6 % (37.5-50.1); Hemoglobin 9.3 g/dL (12.9-16.9); Immature Granulocytes % 0.4 % (0-4); Lymphocytes # 1.8 K/mcL (0.6-4.6); Lymphocytes % 25.5 %; Mean Corpuscular HGB Conc 31.4 g/dL (31.6-35.5); Mean Corpuscular Hemoglobin 28.4 pg (28.0-33.3); Mean Corpuscular Volume 90.5 fL (83.0-100.0); Mean Platelet Volume 8.9 fL (9.4-12.4); Monocytes # 0.6 K/mcL (0.0-1.3); Neutrophils # 4.1 K/mcL (1.6-8.9); Platelet Count 245 K/mcL (140-400); Red Blood Count 3.27 M/mcL (4.19-5.50); Red Cell Distribution Width 15.6 % (11.5-14.5); Segmented Neutrophils % 58.7 %
[2021-09-19] MEDS: Piperacillin/Tazobactam 3.375 GM in 0.9 % Sodium Chloride Mini Bag 100 ML IVPB SCH ×3 (01:52→16:30)
[2021-09-19 02:03] LABS: Calcium 8.2 mg/dL (8.6-10.3); Magnesium 1.9 mg/dL (1.6-2.6); Potassium 3.5 mEq/L (3.5-5.1)
[2021-09-19 02:04] LABS: Albumin/Globulin Ratio 0.5 (1.1-2.2); Bilirubin,Direct 0.1 mg/dL (0.0-0.2); Bilirubin,Indirect 0.4 mg/dL (0.0-1.0); Bilirubin,Total 0.5 mg/dL (0.3-1.0); Globulin 5.6 g/dL (2.4-3.5); Total Protein 8.6 g/dL (6.4-8.9)
[2021-09-19 02:05] LABS: INR 1.4; Prothrombin Time 15.9 Seconds (9.4-12.1)
[2021-09-19] MEDS ORDERED: Apixaban 5 MG TABLET PO SCH (09:00)
[2021-09-19] MEDS: Topiramate 100 MG TABLET PO SCH ×2 (09:23→21:18)
[2021-09-19] MEDS: Aspirin Enteric Coated 81 MG Tablet PO SCH (09:23)
[2021-09-19] MEDS: 0.9 % Sodium Chloride 1,000 ML IVC SCH (16:30)
[2021-09-19] MEDS: Fluticasone Propionate Nasal 50 MCG/SPRAY BOTTLE NS SCH (16:31)
[2021-09-19] MEDS: Insulin DETEMIR 100 UNIT/ML X5UNITS SUBQ SCH (21:14)
[2021-09-20] MEDS: Piperacillin/Tazobactam 3.375 GM in 0.9 % Sodium Chloride Mini Bag 100 ML IVPB SCH ×3 (02:57→17:00)
[2021-09-20 06:53] LABS: Basophils # 0.1 K/mcL (0.0-0.2); Basophils % 1.1 %; Eosinophils # 0.3 K/mcL (0.0-0.6); Eosinophils % 4.8 %; Hematocrit 30.1 % (37.5-50.1); Hemoglobin 9.4 g/dL (12.9-16.9); Immature Granulocytes % 0.5 % (0-4); Lymphocytes # 1.7 K/mcL (0.6-4.6); Lymphocytes % 29.4 %; Mean Corpuscular HGB Conc 31.2 g/dL (31.6-35.5); Mean Corpuscular Hemoglobin 28.4 pg (28.0-33.3); Mean Corpuscular Volume 90.9 fL (83.0-100.0); Mean Platelet Volume 9.2 fL (9.4-12.4); Monocytes # 0.5 K/mcL (0.0-1.3); Monocytes % 9.3 %; Neutrophils # 3.1 K/mcL (1.6-8.9); Platelet Count 245 K/mcL (140-400); Red Blood Count 3.31 M/mcL (4.19-5.50); Red Cell Distribution Width 15.6 % (11.5-14.5); Segmented Neutrophils % 54.9 %; White Blood Count 5.6 K/mcL (4.3-11.1)
[2021-09-20 07:08] LABS: Calcium 7.9 mg/dL (8.6-10.3); Potassium 3.8 mEq/L (3.5-5.1)
[2021-09-20] MEDS: Topiramate 100 MG TABLET PO SCH ×2 (08:26→21:36)
[2021-09-20] MEDS: Aspirin Enteric Coated 81 MG Tablet PO SCH (08:26)
[2021-09-20] MEDS ORDERED: 0.9 % Sodium Chloride 500 ML ONE (09:18)
[2021-09-20] MEDS: Fluticasone Propionate Nasal 50 MCG/SPRAY BOTTLE NS SCH (17:09)
[2021-09-20] MEDS: Insulin DETEMIR 100 UNIT/ML X5UNITS SUBQ SCH (21:39)
[2021-09-21] MEDS: Piperacillin/Tazobactam 3.375 GM in 0.9 % Sodium Chloride Mini Bag 100 ML IVPB SCH ×2 (03:01→10:06)
[2021-09-21] MEDS: Aspirin Enteric Coated 81 MG Tablet PO SCH (07:45)
[2021-09-21] MEDS: Topiramate 100 MG TABLET PO SCH ×2 (07:45→20:49)
[2021-09-21] MEDS: Fluticasone Propionate Nasal 50 MCG/SPRAY BOTTLE NS SCH (17:22)
[2021-09-21] MEDS: Insulin DETEMIR 100 UNIT/ML X5UNITS SUBQ SCH (20:49)
[2021-09-22 08:05] LABS: Basophils % 0.4 %; Eosinophils # 0.3 K/mcL (0.0-0.6); Eosinophils % 5.3 %; Hematocrit 29.6 % (37.5-50.1); Hemoglobin 9.6 g/dL (12.9-16.9); Immature Granulocytes % 0.2 % (0-4); Lymphocytes # 1.8 K/mcL (0.6-4.6); Lymphocytes % 33.2 %; Mean Corpuscular HGB Conc 32.4 g/dL (31.6-35.5); Mean Corpuscular Hemoglobin 29.1 pg (28.0-33.3); Mean Corpuscular Volume 89.7 fL (83.0-100.0); Monocytes # 0.6 K/mcL (0.0-1.3); Neutrophils # 2.7 K/mcL (1.6-8.9); Platelet Count 242 K/mcL (140-400); Red Cell Distribution Width 15.7 % (11.5-14.5); Segmented Neutrophils % 49.9 %; White Blood Count 5.5 K/mcL (4.3-11.1)
[2021-09-22 08:23] LABS: Calcium 8.2 mg/dL (8.6-10.3); Potassium 3.5 mEq/L (3.5-5.1)
[2021-09-22] MEDS: Aspirin Enteric Coated 81 MG Tablet PO SCH (08:58)
[2021-09-22] MEDS: Topiramate 100 MG TABLET PO SCH (08:58)
[2021-09-22] MEDS ORDERED: FLU Vac QV 21-22 (6Month+)/PF 0.5 ML SYRINGE IM ONE (11:46)
[2021-09-22 16:38] VITALS: BP 111/68; PULSE 67; TEMP 98.4; O2SAT 100
== END 2021-09-22 18:46 | DRG 466 ==
LOC: EMEROOARM 14:56 → SUATTDRO 21:02 → 3BNU 21:02
PROVIDERS: ADMIT Internal Medicine; ATTEND Internal Medicine
PROC: IRDRAIN (2021-09-19 10:30)

== ENCOUNTER 2021-11-06 19:53 | Inpatient (IN) ==
[2021-11-06] MEDS ORDERED: 0.9 % Sodium Chloride 1,000 ML IVC ONE (20:06)
[2021-11-06] MEDS ORDERED: Acetaminophen 325 MG TABLET PO PRN (20:31)
[2021-11-06] MEDS ORDERED: Naloxone 0.4 MG/ML INJ IVP PRN (20:31)
[2021-11-06] MEDS ORDERED: Melatonin 3 MG TABLET PO PRN (20:31)
[2021-11-06] MEDS ORDERED: Ondansetron 4 MG/2 ML VIAL IVP PRN (20:31)
[2021-11-06] MEDS: Ringers Solution, Lactated 1,000 ML IVC SCH (21:06)
[2021-11-06 21:12] LABS: Basophils % 0.4 %; Eosinophils # 0.2 K/mcL (0.0-0.6); Hematocrit 22.9 % (37.5-50.1); Hemoglobin 7.4 g/dL (12.9-16.9); Immature Granulocytes % 0.5 % (0-4); Lymphocytes # 1.7 K/mcL (0.6-4.6); Mean Corpuscular HGB Conc 32.3 g/dL (31.6-35.5); Mean Corpuscular Hemoglobin 29.5 pg (28.0-33.3); Mean Corpuscular Volume 91.2 fL (83.0-100.0); Monocytes % 9.4 %; Neutrophils # 7.5 K/mcL (1.6-8.9); Platelet Count 321 K/mcL (140-400); Red Blood Count 2.51 M/mcL (4.19-5.50); Red Cell Distribution Width 13.8 % (11.5-14.5); Segmented Neutrophils % 71.7 %; White Blood Count 10.4 K/mcL (4.3-11.1)
[2021-11-06 21:25] LABS: Alanine Aminotransferase 5 Units/L (7-52); Albumin/Globulin Ratio 0.6 (1.1-2.2); Alkaline Phosphatase 44 Units/L (34-104); Aspartate Amino Transferase 8 Units/L (13-39); BUN/Creatinine Ratio 16 (6-26); Bilirubin,Total 0.3 mg/dL (0.3-1.0); Blood Urea Nitrogen 23 mg/dL (6-20); Calcium 8.2 mg/dL (8.6-10.3); Carbon Dioxide 19 mEq/L (23-29); Chloride 108 mEq/L (98-107); Globulin 5.2 g/dL (2.4-3.5); Glucose 105 mg/dL (70-105); Osmolality,Calculated 284 (280-300); Potassium 3.4 mEq/L (3.5-5.1); Sodium 135 mEq/L (136-145); Total Protein 8.2 g/dL (6.4-8.9); eGFR For African Americans > 60 (> 60); eGFR For Non-African Americans 50 (> 60)
[2021-11-06 21:47] LABS: Clarity,Urine Ex.Turbid (Clear); Color,Urine Dark-Red (Yellow)
[2021-11-06] MEDS ORDERED: Dextrose Gel 15 GM/37.5 ML TUBE PO PRN ×2 (21:53)
[2021-11-06] MEDS ORDERED: *HR* Dextrose 50 % in Water (Syg) 50 ML SYRINGE IVP PRN (21:53)
[2021-11-06] MEDS ORDERED: D5% in Water 1,000 ML IVC PRN (21:53)
[2021-11-07] MEDS: Piperacillin/Tazobactam 3.375 GM in 0.9 % Sodium Chloride Mini Bag 100 ML IVPB SCH ×4 (00:06→23:57)
[2021-11-07] MEDS: Insulin LISPRO 300 UNITS/3 ML VIAL SUBQ SCH ×4 (00:15→16:27)
[2021-11-07 02:37] LABS: Basophils % 0.4 %; Eosinophils # 0.2 K/mcL (0.0-0.6); Eosinophils % 2.6 %; Hemoglobin 6.8 g/dL (12.9-16.9); Immature Granulocytes % 0.5 % (0-4); Lymphocytes # 1.5 K/mcL (0.6-4.6); Lymphocytes % 18.4 %; Mean Corpuscular HGB Conc 32.4 g/dL (31.6-35.5); Mean Corpuscular Hemoglobin 29.6 pg (28.0-33.3); Mean Corpuscular Volume 91.3 fL (83.0-100.0); Monocytes # 0.9 K/mcL (0.0-1.3); Monocytes % 10.8 %; Neutrophils # 5.6 K/mcL (1.6-8.9); Platelet Count 279 K/mcL (140-400); Red Cell Distribution Width 13.9 % (11.5-14.5); Segmented Neutrophils % 67.3 %; White Blood Count 8.3 K/mcL (4.3-11.1)
[2021-11-07 02:47] LABS: INR 1.5; Prothrombin Time 17.1 Seconds (9.4-12.1)
[2021-11-07 02:52] LABS: BUN/Creatinine Ratio 15 (6-26); Blood Urea Nitrogen 20 mg/dL (6-20); Calcium 7.8 mg/dL (8.6-10.3); Carbon Dioxide 16 mEq/L (23-29); Chloride 111 mEq/L (98-107); Glucose 100 mg/dL (70-105); Osmolality,Calculated 283 (280-300); Potassium 3.5 mEq/L (3.5-5.1); Sodium 135 mEq/L (136-145); eGFR For African Americans > 60 (> 60); eGFR For Non-African Americans 55 (> 60)
[2021-11-07] MEDS ORDERED: 0.9 % Sodium Chloride 250 ML IVC SCH ×2 (03:30→17:45)
[2021-11-07] MEDS: Ringers Solution, Lactated 1,000 ML IVC SCH (05:06)
[2021-11-07] MEDS ORDERED: cefTRIAXone 1,000 MG in Water for inj. (sterile) 10 ML IVP SCH (09:00)
[2021-11-07] MEDS: 0.9 % Sodium Chloride 1,000 ML IVC SCH ×2 (09:17→19:42)
[2021-11-07 11:52] LABS: Hematocrit 23.7 % (37.5-50.1); Hemoglobin 7.6 g/dL (12.9-16.9)
[2021-11-07] MEDS ORDERED: 0.9 % Sodium Chloride 500 ML IVC ONE (12:26)
[2021-11-07 16:52] LABS: Hematocrit 21.9 % (37.5-50.1); Hemoglobin 6.8 g/dL (12.9-16.9)
[2021-11-07] MEDS ORDERED: Hyoscyamine SL 0.125 MG TAB.SUBL SL PRN (17:07)
[2021-11-07] MEDS: Topiramate 100 MG TABLET PO SCH (19:07)
[2021-11-07] MEDS: Fluticasone Propionate Nasal 50 MCG/SPRAY BOTTLE NS SCH (19:08)
[2021-11-07] MEDS ORDERED: Insulin DETEMIR 100 UNIT/ML X5UNITS SUBQ SCH (21:00)
[2021-11-07 22:58] LABS: Hematocrit 23.9 % (37.5-50.1); Hemoglobin 7.5 g/dL (12.9-16.9)
[2021-11-08 03:41] LABS: Basophils % 0.6 %; Eosinophils # 0.2 K/mcL (0.0-0.6); Eosinophils % 3.1 %; Hematocrit 23.3 % (37.5-50.1); Hemoglobin 7.7 g/dL (12.9-16.9); Immature Granulocytes % 0.9 % (0-4); Lymphocytes # 1.8 K/mcL (0.6-4.6); Lymphocytes % 25.1 %; Mean Corpuscular Hemoglobin 29.6 pg (28.0-33.3); Mean Corpuscular Volume 89.6 fL (83.0-100.0); Mean Platelet Volume 8.6 fL (9.4-12.4); Monocytes # 0.7 K/mcL (0.0-1.3); Monocytes % 10.4 %; Neutrophils # 4.2 K/mcL (1.6-8.9); Platelet Count 234 K/mcL (140-400); Red Cell Distribution Width 14.5 % (11.5-14.5); Segmented Neutrophils % 59.9 %
[2021-11-08 03:51] LABS: INR 1.3; Prothrombin Time 14.2 Seconds (9.4-12.1)
[2021-11-08 03:58] LABS: Calcium 7.4 mg/dL (8.6-10.3); Magnesium 1.8 mg/dL (1.6-2.6); Potassium 3.6 mEq/L (3.5-5.1)
[2021-11-08] MEDS: Topiramate 100 MG TABLET PO SCH ×2 (06:33→19:58)
[2021-11-08] MEDS: 0.9 % Sodium Chloride 1,000 ML IVC SCH ×2 (06:34→16:45)
[2021-11-08] MEDS: Insulin LISPRO 300 UNITS/3 ML VIAL SUBQ SCH ×3 (07:31→16:39)
[2021-11-08 09:29] LABS: Hematocrit 26.7 % (37.5-50.1); Hemoglobin 8.5 g/dL (12.9-16.9)
[2021-11-08] MEDS: Piperacillin/Tazobactam 3.375 GM in 0.9 % Sodium Chloride Mini Bag 100 ML IVPB SCH (10:22)
[2021-11-08 12:02] LABS: Albumin 2.5 g/dL (3.5-5.7)
[2021-11-08] MEDS: Fluticasone Propionate Nasal 50 MCG/SPRAY BOTTLE NS SCH (19:58)
[2021-11-09] MEDS: 0.9 % Sodium Chloride 1,000 ML IVC SCH (04:14)
[2021-11-09] MEDS: Topiramate 100 MG TABLET PO SCH ×2 (06:37→17:59)
[2021-11-09 07:03] LABS: Basophils # 0.1 K/mcL (0.0-0.2); Basophils % 0.8 %; Eosinophils # 0.3 K/mcL (0.0-0.6); Eosinophils % 4.5 %; Hematocrit 25.2 % (37.5-50.1); Immature Granulocytes % 1.5 % (0-4); Lymphocytes # 1.6 K/mcL (0.6-4.6); Lymphocytes % 24.2 %; Mean Corpuscular HGB Conc 31.7 g/dL (31.6-35.5); Mean Corpuscular Hemoglobin 28.7 pg (28.0-33.3); Mean Corpuscular Volume 90.3 fL (83.0-100.0); Monocytes # 0.6 K/mcL (0.0-1.3); Monocytes % 9.3 %; Neutrophils # 3.9 K/mcL (1.6-8.9); Nucleated Red Blood Cells 0.6 /100 WBC (0); Platelet Count 272 K/mcL (140-400); Red Blood Count 2.79 M/mcL (4.19-5.50); Red Cell Distribution Width 14.4 % (11.5-14.5); Segmented Neutrophils % 59.7 %; White Blood Count 6.5 K/mcL (4.3-11.1)
[2021-11-09 07:33] LABS: BUN/Creatinine Ratio 14 (6-26); Blood Urea Nitrogen 19 mg/dL (6-20); Calcium 7.8 mg/dL (8.6-10.3); Carbon Dioxide 16 mEq/L (23-29); Chloride 112 mEq/L (98-107); Glucose 121 mg/dL (70-105); Magnesium 1.7 mg/dL (1.6-2.6); Osmolality,Calculated 282 (280-300); Potassium 3.6 mEq/L (3.5-5.1); Sodium 134 mEq/L (136-145); eGFR For African Americans > 60 (> 60); eGFR For Non-African Americans 55 (> 60)
[2021-11-09] MEDS: Insulin LISPRO 300 UNITS/3 ML VIAL SUBQ SCH ×3 (08:01→16:07)
[2021-11-09] MEDS: Cholecalciferol (D-3) 1,000 UNIT (25MCG) TABLET PO SCH (08:05)
[2021-11-09] MEDS: Apixaban 5 MG TABLET PO SCH (17:59)
[2021-11-09] MEDS: Fluticasone Propionate Nasal 50 MCG/SPRAY BOTTLE NS SCH (17:59)
[2021-11-10] MEDS: Apixaban 5 MG TABLET PO SCH (06:12)
[2021-11-10] MEDS: Topiramate 100 MG TABLET PO SCH (06:12)
[2021-11-10] MEDS ORDERED: Aspirin Enteric Coated 81 MG Tablet PO SCH (07:00)
[2021-11-10] MEDS: Insulin LISPRO 300 UNITS/3 ML VIAL SUBQ SCH ×2 (07:11→11:17)
[2021-11-10] MEDS: Cholecalciferol (D-3) 1,000 UNIT (25MCG) TABLET PO SCH (07:46)
[2021-11-10 09:32] LABS: Basophils # 0.1 K/mcL (0.0-0.2); Basophils % 0.8 %; Eosinophils # 0.3 K/mcL (0.0-0.6); Eosinophils % 5.1 %; Hematocrit 31.8 % (37.5-50.1); Immature Granulocytes % 1.8 % (0-4); Lymphocytes # 1.5 K/mcL (0.6-4.6); Lymphocytes % 24.3 %; Mean Corpuscular HGB Conc 31.8 g/dL (31.6-35.5); Mean Corpuscular Volume 91.4 fL (83.0-100.0); Mean Platelet Volume 8.7 fL (9.4-12.4); Monocytes # 0.4 K/mcL (0.0-1.3); Monocytes % 7.1 %; Neutrophils # 3.7 K/mcL (1.6-8.9); Platelet Count 350 K/mcL (140-400); Red Blood Count 3.48 M/mcL (4.19-5.50); Red Cell Distribution Width 14.4 % (11.5-14.5); Segmented Neutrophils % 60.9 %; White Blood Count 6.1 K/mcL (4.3-11.1)
[2021-11-10 09:39] LABS: Hemoglobin 10.1 g/dL (12.9-16.9)
[2021-11-10 09:52] LABS: Calcium 8.6 mg/dL (8.6-10.3); Magnesium 1.9 mg/dL (1.6-2.6); Potassium 3.3 mEq/L (3.5-5.1)
[2021-11-10 11:06] VITALS: BP 136/72; PULSE 77; TEMP 97.8; O2SAT 100
[2021-11-10 11:13] LABS: Influenza A PCR Negative (Negative); Influenza B PCR Negative (Negative); Resp. Syncytial Virus PCR Negative (Negative)
[2021-11-10 11:14] LABS: SARS-CoV-2 by PCR (In House) Negative (Negative)
[2021-11-10] MEDS ORDERED: Lactobacillus 1 EACH CAP.SPRINK PO SCH (21:00)
== END 2021-11-10 12:48 | DRG 463 ==
LOC: 2ANU 19:53 → EMEROOARM 19:53 → SUATTDRO 21:02 → 2ANU 22:39
PROVIDERS: ADMIT Internal Medicine; ATTEND Pharmacist